=== PATIENT | female | born 1990 | race Caucasian/White ===

== ENCOUNTER 2016-11-14 13:19 | Emergency (ER) | payer SELFPAY ==
[2016-11-14 13:30] VITALS: O2SAT 96
[2016-11-14] MEDS ORDERED: HYDROCODONE/APAP 5/325 TAB PO ONE (14:02)
--- NOTE | 2016-11-14 14:03 | EDPHY ---
H & P Time Seen by Provider: 11/14/16 13:34 HPI/ROS: HPI: 18-year-old female presents to emergency department with chief concern right knee, right calf pain. Symptoms onset October 16 when she was at a heavy a metal concert, jumped, and was care at in the posterior right knee. "It took my knee out." Had an x-ray done at [facility] in [place] that was negative. Has ongoing pain, right calf swelling, and has difficulty ambulating. Has a history of a left lower extremity DVT. Denies fever, chills, other injury at time of incident, head injury, neck or back pain , right hip, right ankle or foot pain. No weakness, numbness, or tingling of the right lower extremity. No dizziness, shortness of breath, chest pain. ROS:10 point review of systems is negative other than as stated in HPI Past Medical/Surgical History: Left lower extremity DVT Smoking Status: Current every day smoker Physical Exam: Vital signs stable, reviewed by me General: Awake, alert, calm, cooperative. No acute distress. Head: Normalocephalic. Atraumatic. EENT: PERRLA. EOMI. Neck: Supple, nontender. No midline tenderness, full ROM. Respiratory: Breathing unlabored. CV: Chest nontender, atraumatic. Distal pulses 2+. Brisk cap refill all extremities. GI: Deferred Neuro: Alert. Oriented x 3. Sensation intact all extremities. Skin: Skin warm, dry, intact. No ecchymosis, abrasions, or lacerations. Extremities: No discomfort to palpation of the right hip, ankle or foot. Full ROM. Mild swelling of the right knee without ecchymosis present. There is discomfort to palpation of the posterior aspect of the right knee. Significantly decreased flexion and extension. Negative valgus and varus stress. Negative Yael. Negative AP drawer. Negative ballotment. Right calf pain, positive Homans. Right calf 36 cm in circumference, left calf 34 cm in circumference. Constitutional: Initial Vital Signs Temperature (C) 36.7 C 11/14/16 13:27 Heart Rate 89 11/14/16 13:27 Respiratory Rate 16 11/14/16 13:27 O2 Sat (%) 96 11/14/16 13:27 O2 Delivery Mode Room Air Allergies/Adverse Reactions: citalopram Allergy (Verified 09/18/14 14:09) codeine [Codeine] Allergy (Verified 09/18/14 14:09) Home Medications: Medication Instructions Recorded Hydrocodone/APAP 5/325 [[place] 1 - 2 tab PO Q6H PRN #12 tab 11/14/16 5/325 (*)] Rivaroxaban [Xarelto 15mg (*)] 15 mg PO BID #42 tab 11/14/16 Medical Decision Making - Diagnostics Imaging: Right Lower Extremity Ultrasound and Venous Duplex Doppler Study History: Pain. Comparison: None available. Technique: High frequency transducer was used for imaging and Doppler study of the veins of the lower extremity. Pulsed Doppler and color Doppler were utilized, along with various maneuvers to assess flow in the veins. Findings: There is DVT extending from the distal femoral vein through the calf veins, including the posterior tibial, peroneal, and gastrocnemius veins. The proximal femoral vein and common femoral vein are patent. Impression: DVT extending from the distal femoral vein through the calf veins. Dictated By: Holden Conn MD ED Course/Re-evaluation: 18-year-old female presents to emergency department with right knee and calf pain and swelling that onset after an incident on October 16 when she was jumping up and down at a heavy metal concert, and was kicked in the posterior knee accidentally by a no other concert at 10 D. Has had pain since that time. Has had calf swelling over the past week. Has a history of DVT in the left leg. Had an x-ray performed at [facility] that was negative. Was not given a referral for orthopedist. I have evaluated the x-ray that was performed by [facility] in [place] and agree that there are no acute findings. I will provide crutches and knee immobilizer with orthopedist follow-up pending negative ultrasound. Will perform a right lower extremity ultrasound to rule out DVT as she does have a history of DVT, positive Homans, positive calf swelling. 1500: Ultrasound shows a right lower extremity DVT that does not meet criteria for thrombolysis. I have written a prescription for Xarelto 15 mg twice daily. She has been counseled regarding this. She understands she needs to follow up tomorrow for recheck without fail with [facility]. She agrees to do so. She has been counseled regarding compression stocking and elevation of the extremity. Placed in a right knee immobilizer and instructed in use of crutches. Neurovascular status intact after application. Differential Diagnosis: Differential diagnosis includes but is not limited to ligamentous strain, dislocation, fracture, meniscal injury, other internal derangement - Data Points Medications Given: Discontinued Medications Hydrocodone Bitart/Acetaminophen ([place] 5/325) 2 tab PO EDNOW ONE Stop: 11/14/16 14:03 Last Admin: 11/14/16 14:15 Dose: 2 tab Departure - Departure Disposition: Home, Routine, Self-Care Clinical Impression: Right knee injury, Internal derangement of knee DVT (deep venous thrombosis) Qualifiers: Affected thrombotic vein of extremity: other lower extremity vein Laterality: right Chronicity: acute Condition: Good Instructions: Knee Immobilizer (ED) Additional Instructions: Plan: Xarelto 15 mg by mouth twice daily for 21 days, then per your PCP Imperative that he follow up with her primary care provider at [facility] tomorrow for recheck without fail Use crutches and brace while up and about, keep leg elevated while up and about Follow up with orthopedist Dr Lozano per your primary care provider--When you call to schedule appointment, please let the office know you are an "ER follow up" appointment" You may use 600 mg of ibuprofen every 6 hours for fever, inflammation, or pain. Always take ibuprofen with food and stay well hydrated while taking. Do not exceed the maximum allowable dose in a 24 hour period which is 2400 mg. For more severe pain 1-2 [place] every 6 hours as needed--Never drink or drive while taking this medication. This medication impairs decision making capacity so do not work or sign important documents while taking. This medication its constipating so drink plenty of fluids and consider an [id number] stool softener such as docusate sodium (Colace) while taking this medication. This medication has addictive properties. You should use the least amount for the shortest amount of time. [facility] do not refill narcotic pain medication prescriptions. This is a hospital policy. You will need to follow up as indicated for recheck for further narcotic refills. Referrals: [facility] [Other] - As per Instructions Christian Lozano MD [Medical Doctor] - As per Instructions Prescriptions: Hydrocodone/APAP 5/325 [[place] 5/325 (*)] 1 - 2 tab PO Q6H PRN #12 tab PRN Reason: severe pain Rivaroxaban [Xarelto 15mg (*)] 15 mg PO BID #42 tab
[2016-11-14 16:36] VITALS: BP 108/73; PULSE 16; RESP 65; TEMP 97.7
== END 2016-11-14 16:55 | disposition home or self-care (01) ==
DX: M23.91 Unspecified internal derangement of right knee (principal); I82.401 Acute embolism and thrombosis of unspecified deep veins of right lower extremity; F17.200 Nicotine dependence, unspecified, uncomplicated; Z79.01 Long term (current) use of anticoagulants; X58.XXXA Exposure to other specified factors, initial encounter; Y99.8 Other external cause status; Y93.39 Activity, other involving climbing, rappelling and jumping off

== ENCOUNTER → 2017-01-02 | Outpatient (CLI) | payer MEDICAID | LOC: FIMAGING 09:44 | PROVIDERS: ATTEND Internal Medicine Hematology & Oncology | DX: Z01.818 Encounter for other preprocedural examination (principal); Z86.718 Personal history of other venous thrombosis and embolism; Z79.01 Long term (current) use of anticoagulants ==